=== PATIENT | female | born 1970 | race Caucasian/White ===

== ENCOUNTER 2024-08-05 11:33 | Outpatient (CLI) | payer BC, SELFPAY ==
--- NOTE | 2024-08-05 12:37 | ECG_ITS ---
APPROVED REPORT Exam: Resting ECG HR:77 bpm ECG Measurements Heart Rate 77 AXES OR 137 P 12 QRSd 85 QRS 57 QT 382 T 91 QTc 414 Conclusion SINUS RHYTHM POSSIBLE LEFT ATRIAL ENLARGEMENT [-0.1mV P-WAVE IN V1/V2] POSSIBLE ANTERIOR MYOCARDIAL INFARCTION , PROBABLY OLD [30 ms Q WAVE IN V3/V4, OR R < 0.2 mV IN V4] BORDERLINE ECG UNCONFIRMED REPORT Electronically signed by : Kal Rodríguez MD 08/07/2024 17:16:46
[2024-08-05 12:54] LABS: Basophils # 0.1 K/mm3 (0-0.2); Basophils % 1.1 % (0.1-2.0); Eosinophils # 0.3 K/mm3 (0.0-0.4); Eosinophils % 3.8 % (0.1-12.0); Hematocrit 39.4 % (37.0-47.0); Hemoglobin 13.2 g/dL (12.2-16.2); Lymphocytes # 1.9 K/mm3 (0.7-4.5); Lymphocytes % 29.3 % (10-50); Mean Corpuscular HGB Conc 33.5 g/dL (31.8-35.4); Mean Corpuscular Hemoglobin 31.4 pg (27.0-31.2); Mean Corpuscular Volume 93.8 fl (81-99); Mean Platelet Volume 9.9 fl (7.4-10.4); Monocytes # 0.4 K/mm3 (0.1-1.0); Monocytes % 5.8 % (1.7-9.3); Neutrophils # 3.9 K/mm3 (1.8-7.8); Neutrophils % 59.4 % (37.0-80.0); Platelet Count 289 K/mm3 (142-424); Red Cell Distribution Width 12.1 % (11.5-17.5); White Blood Count 6.5 K/mm3 (4.8-10.8)
[2024-08-05 13:12] LABS: Alanine Aminotransferase 21 U/L (12-78); Albumin Level 4.2 g/dl (3.5-5.0); Albumin/Globulin Ratio 1.4 (1.1-1.8); Alkaline Phosphatase 84 U/L (38-126); Anion Gap 16.1 mEq/L (5-15); Aspartate Amino Transferase 31 U/L (14-36); Bilirubin,Total 0.3 mg/dl (0.2-1.3); Blood Urea Nitrogen 10 mg/dl (7-17); Calcium 9.1 mg/dl (8.4-10.2); Carbon Dioxide 23 mmol/L (22.0-30.0); Chloride 103 mmol/L (98-107); Estimated Glomerular Filt Rate 130 ml/min (>60); GFR (African American) 157 ML/MIN (>60); Globulin 3.1 g/dL (1.3-3.2); Glucose 94 mg/dl (74-100); Potassium 4.1 mmoL/L (3.5-5.1); Sodium 138 mmol/L (136-145); Total Protein,Serum 7.3 g/dl (6.3-8.2)
[2024-08-05 14:14] LABS: HCG,Quantitative < 2 mIU/ml (0-5.42)
[2024-08-05 15:10] VITALS: BMI 50.6
== END 2024-08-05 23:59 | disposition home or self-care (01) ==
LOC: PREOP 11:33
PROVIDERS: PCP Nurse Practitioner Family; Visit Provider Nurse Practitioner Obstetrics & Gynecology
DX: Z01.810 Encounter for preprocedural cardiovascular examination (principal); N92.1 Excessive and frequent menstruation with irregular cycle; R94.31 Abnormal electrocardiogram [ECG] [EKG]
CPT/HCPCS: 80053; 84702; 85025; 93005

== ENCOUNTER 2024-08-10 08:01 | Day surgery (SDC) | payer BC, SELFPAY ==
[2024-08-05 15:13] VITALS: BMI 50.6
[2024-08-10] VITALS (9 sets, daily range): BP systolic 106–160; BP diastolic 48–107; PULSE 67–90; RESP 18–20; TEMP 36.1–36.6; O2SAT 96–98
[2024-08-10] MEDS: LACTATED RINGERS 1000ML 1,000 ML 25 ML IV (08:23)
--- NOTE | 2024-08-10 08:44 | EXP.ANES.CKL ---
[facility] Disclaimer: The information contained in this section may have been updated after the patient was seen, as this information can be updated by other users. Medical History Urinary tract infection Sleep apnea Menopause History of gastroesophageal reflux (GERD) Irritable bowel syndrome (IBS) Palpitations Hypertension History of anemia Hx of uterine leiomyoma History of depression Hx of anxiety disorder Surgical History History of colonoscopy Hx of section Hx of gastric bypass Family History Father Family history of myocardial infarction Grandfather Family history of cancer Social History Smoking Status: Never smoker alcohol intake: current substance use type: denies use current occupational status: employed Travel in the last 8 weeks: None [facility] Anesthesia Checklist Patient Identification Patient Identification: Arm Band Structural Data Admitted From: Home Planned Operative Procedure/s: Hysteroscopy, D&C, Myosure Consent for Planned Operative Procedure(s) Verified: Yes Verified Documents: Surgical Consent and History and Physical NPO Status Verified Time NPO: 00:00 Additional verifications Anesthesia Reactions: No Hx Blood Transfusions: No Blood Transfusion Reaction: No Airway Assessment Mallampati Score:: Class II C-Spine Mobility Assessed: Yes TMJ Mobility Assessed: Yes Dentition: Good Dentition Neurological Assessment Level of Consciousness: Awake, Alert and Appropriate Anesthesia Plan Anesthesia Risk discussed: Yes Anesthesia Plan: Verified ASA Class: III Anesthesia Type: General
[2024-08-10] MEDS: CLINDAMYCIN PHOSPHATE/D5W 900 MG/50 ML PIGGYBACK 100 MG IV (09:02)
[2024-08-10] MEDS: ROPIVACAINE 0.5% 30ML VIAL 150 MG (09:16)
[2024-08-10] MEDS: SODIUM CHLORIDE IRRIG SOLUTION 3,000 ML 200 ML IR (09:17)
--- NOTE | 2024-08-10 09:37 | P.OP_ITS ---
Date of procedure: 08/10/24 Pre-op Diagnosis:: Postmenopausal bleeding, Post-op Diagnosis:: Postmenopausal bleeding Procedure performed:: Hysteroscopy and MyoSure sampling of the endometrial cavity. Surgeon:: Lopez Orellana MD Professional Employer Consultant(s):: None DIRT SHOVELER:: Mike Bui Anesthesia: LMA Estimated blood loss (mL): 50 Clinical Note:: She is a 52-year-old lady who complains of postmenopausal bleeding. An ultrasound performed elsewhere showed a thickened endometrium measuring 1.4 cm. We had tried to do an endometrial biopsy here in the office but she was extremely uncomfortable. As result of that we offered her hysteroscopy and MyoSure endometrial sampling. Operative findings:: She had an anteverted and anteflexed uterus that slightly bulky. The endometrium appeared lush but otherwise normal. There were no polyps. Tubal ostia were seen and appeared normal. Operative note:: She was taken the operating room where LMA anesthesia was found be adequate. She was prepped and draped normal sterile fashion lithotomy position. A weighted speculum was placed in vagina and the anterior lip of the cervix was grasped with a single-tooth tenaculum. I then used dilators to dilate the cervix up to approximately 6 mm. The hysteroscope was then inserted into the uterine cavity and the findings were as previously dictated. Then using the MyoSure I was able to shave the entire endometrial cavity and the samples were sent to pathology. At the end of the procedure I then injected approximate 20 cc of 0.25% ropivacaine at the 7:00 and 5 o'clock position of the cervix. She Toller procedure well and was taken the recovery room in excellent condition. All sponge, instrument and needle counts were correct. The ramya mated blood loss was less than 50 cc. Condition: stable Disposition: PACU Specimens:: Endometrial sampling's Complications:: None
--- NOTE | 2024-08-10 09:39 | P.PNANES_ITS ---
[facility] Anesthesia Record Part I Anesthesia Record I Intake, IV Amount: 800 Hydration: Adequate Estimated blood loss (mL): 49 Urine output (mL): 200 Blood Pressure: 148/91 SaO2: 98 Pulse Rate: 90 Airway Patency: Patent Respiratory Rate: 20 Temperature: 97 F Patient is:: Drowsy and Stable Stable to PACU at:: 09:33
--- NOTE | 2024-08-11 13:09 | P.PNANES_ITS ---
[facility] Anesthesia Record Part II Anesthesia Record Part II Discharge Time: 10:03 Destination: Surgical Day Care (OP Surgery) PACU nurse assessment reviewed?: Yes Patient Condition:: Good Anesthesia Complications:: None Swallowing reflex intact?: Yes Airway Patency: Patent Cyanosis?: No Blood Pressure: 144/91 SaO2: 98 Respiratory Rate: 18 Pulse Rate: 77 Temperature: 97 F Mental Status: Alert & Oriented Pain level:: 0 Nausea and/or vomitting:: None Intake, IV Amount: 0 Hydration: Adequate
[2024-08-11 13:10] VITALS: BP 144/91; PULSE 77; RESP 18; TEMP 36.1; O2SAT 98
== END 2024-08-10 10:35 | disposition home or self-care (01) ==
PROVIDERS: PCP Nurse Practitioner Family; Visit Provider Nurse Practitioner Obstetrics & Gynecology
PROC: 0UDB8ZZ Extraction of Endometrium, Via Natural or Artificial Opening Endoscopic (ICD-10-PCS; CPT 58558; principal; 2024-08-10 09:30)
DX: N92.4 Excessive bleeding in the premenopausal period (principal)
CPT/HCPCS: 58558; 96374; J0736; J1100; J2250; J2405; J3010; J7120